=== PATIENT | female | born 1990 | race Two or more races ===

== ENCOUNTER 2023-06-03 00:31 | Emergency (ER) | payer MEDICAID, OTHER ==
[~2023-06-03] VITALS: Ht 149.9 cm; Wt 95.5 kg
[2023-06-03 00:50] VITALS: BP 157/85; PULSE 69; RESP 16; O2SAT 100
[2023-06-03] MEDS ORDERED: CYCL-614 PO (03:13)
[2023-06-03] MEDS ORDERED: IBUP-1456 PO (03:13)
[2023-06-03] MEDS: KETOROLAC TROMETH 60MG/2ML VIAL IM ONE (03:17)
== END 2023-06-03 03:39 | disposition home or self-care (01) ==
LOC: ER 00:31
DX: S39.012A Strain of muscle, fascia and tendon of lower back, initial encounter (principal); Z32.02 Encounter for pregnancy test, result negative; W22.8XXA Striking against or struck by other objects, initial encounter; Y93.89 Activity, other specified; Y92.89 Other specified places as the place of occurrence of the external cause; Y99.8 Other external cause status
CPT/HCPCS: 81025; 96372; 99283; J1885